=== PATIENT | male | born 1980 | race Caucasian/White ===

== ENCOUNTER → 2021-01-06 08:55 | Outpatient (BNVA) | payer BC, SELFPAY | PROVIDERS: PCP Internal Medicine; Visit Provider Urology ==

== ENCOUNTER → 2021-04-07 09:05 | Outpatient (BNVA) | payer BC, SELFPAY | PROVIDERS: PCP Internal Medicine; Visit Provider Urology ==

== ENCOUNTER → 2021-07-08 08:59 | Outpatient (BNVA) | payer BC, SELFPAY | PROVIDERS: PCP Internal Medicine; Visit Provider Urology ==

== ENCOUNTER → 2021-10-07 08:45 | Outpatient (BNVA) | payer BC, SELFPAY | PROVIDERS: PCP Internal Medicine; Visit Provider Urology | DX: Z13.89 Encounter for screening for other disorder (principal) ==

== ENCOUNTER 2022-02-23 16:31 | Outpatient (REF) | payer BC, SELFPAY ==
--- NOTE | ~2022-02-23 | US_ITS ---
EXAMINATION: US RETROPERITONEAL LIMITED (RENAL ONLY) CLINICAL INFORMATION: Calculus of kidney. COMPARISON: Renal ultrasound 05/29/2019 and 11/23/2016. X-ray KUB 08/28/2012. CT abdomen and pelvis 08/12/2012. TECHNIQUE: Real-time imaging of the kidneys. FINDINGS: RIGHT KIDNEY: 10.8 x 5.3 x 5.6 cm (SAG x AP x TRV). The kidney is normal in size, contour, and echogenicity. Renal cortical thickness is normal. There is a 5 mm nonobstructing lower pole calculus and a 4 mm nonobstructing mid pole calculus. There is no hydronephrosis of the right kidney. LEFT KIDNEY: 12.1 x 5.0 x 5.2 cm (SAG x AP x TRV). The kidney is normal in size, contour, and echogenicity. Renal cortical thickness is normal. There are a few nonobstructing calculi of the left kidney, the largest is located within the upper pole and measures 9 mm. There is no hydronephrosis. US/US renal BI IMPRESSION: Bilateral nonobstructing renal calculi. No hydronephrosis.
== END 2022-02-23 16:32 | disposition home or self-care (01) ==
LOC: HO.US 16:31
PROVIDERS: Visit Provider Urology
DX: N20.0 Calculus of kidney (principal)
CPT/HCPCS: 76775

== ENCOUNTER 2022-09-11 15:34 | Outpatient (REF) | payer BC, SELFPAY ==
--- NOTE | ~2022-09-11 | US_ITS ---
EXAMINATION: US RETROPERITONEAL LIMITED (RENAL ONLY) CLINICAL INFORMATION: Calculus of kidney. COMPARISON: Renal ultrasound 02/23/2022 and 05/29/2019. X-ray KUB 08/28/2012. CT abdomen and pelvis 08/12/2012. TECHNIQUE: Real-time imaging of the kidneys. FINDINGS: RIGHT KIDNEY: 10.8 x 5.2 x 6.0 cm (SAG x AP x TRV). The kidney is normal in size, contour, and echogenicity. Renal cortical thickness is normal. No focal parenchymal lesions or hydronephrosis. Lower pole echogenic focus measuring 7 mm is present consistent with a nonobstructing calculus. LEFT KIDNEY: 12.4 x 5.2 x 5.2 cm (SAG x AP x TRV). The kidney is normal in size, contour, and echogenicity. Renal cortical thickness is normal. Multiple punctate foci without twinkle artifact are seen, the largest measuring 3 mm in size consistent with nonobstructing stones. No focal parenchymal lesions. No hydronephrosis. US/US renal BI IMPRESSION: Bilateral nonobstructing renal calculi.
== END 2022-09-11 15:35 | disposition home or self-care (01) ==
LOC: HO.US 15:34
PROVIDERS: PCP Internal Medicine; Visit Provider Urology
DX: N20.0 Calculus of kidney (principal)
CPT/HCPCS: 76775

== ENCOUNTER → 2022-10-06 15:07 | Outpatient (BNVA) | payer BC, SELFPAY | PROVIDERS: PCP Internal Medicine; Visit Provider Urology | DX: Z13.89 Encounter for screening for other disorder (principal) ==

== ENCOUNTER 2023-03-28 07:37 | Outpatient (REF) | payer BC, SELFPAY ==
--- NOTE | ~2023-03-28 | US_ITS ---
EXAMINATION: US RETROPERITONEAL LIMITED (RENAL ONLY) CLINICAL INFORMATION: Calculus of kidney. COMPARISON: Renal ultrasound 09/11/2022 and 02/23/2022. X-ray abdomen KUB 08/28/2012. CT abdomen and pelvis 08/12/2012. TECHNIQUE: Real-time imaging of the kidneys. FINDINGS: RIGHT KIDNEY: 10.7 x 5.6 x 6.1 cm (SAG x AP x TRV). The kidney is normal in size, contour, and echogenicity. Renal cortical thickness is normal. No focal parenchymal lesions or hydronephrosis. At the upper pole, a 5 mm nonobstructing calculus is seen, with twinkle artifact. LEFT KIDNEY: 12.0 x 5.1 x 6.0 cm (SAG x AP x TRV). The kidney is normal in size, contour, and echogenicity. Renal cortical thickness is normal. No calculi or focal parenchymal lesions. No hydronephrosis. US/US renal BI IMPRESSION: A 5 mm nonobstructing right calculus is seen. No left renal calculus is seen. No hydronephrosis is noted bilaterally.
== END 2023-03-28 07:38 | disposition home or self-care (01) ==
LOC: HO.US 07:37
PROVIDERS: PCP Internal Medicine; Visit Provider Urology
DX: N20.0 Calculus of kidney (principal)
CPT/HCPCS: 76775

== ENCOUNTER 2023-04-04 13:44 | Outpatient (AMB) | payer BC, SELFPAY ==
--- NOTE | 2023-04-04 13:58 | MHC.OFFVIS ---
Intake Intake Visit Reasons: 6m/US(SET) Intake Note: Patient is Present for Follow Up Urology Medication: Vitamin B6, Sildenafil, Tadalafil, Tamsulosin Antibiotic Allergies: Penicillins Blood Thinners: None Allergies fentanyl [FENTANYL] Allergy (Unknown, Verified 10/06/22 15:09) RASH penicillin V Allergy (Unknown, Verified 10/06/22 15:09) Unknown Penicillins [PCN] Allergy (Unknown, Verified 10/06/22 15:09) UNKNOWN HPI HPI Comments History of Present Illness Details Gianni Curtis is a very pleasant male. He is a patient of Dr Quinones. He is seen for the following urologic conditions. - hypogonadism - nephrolithiasis - erectile dysfunction - lower urinary tract symptoms Repeat ultrasound shows reduction in stone burden Continue vitamin B6 Encourage fluid intake Using tamsulosin p.r.n. for bladder emptying Has new relationship and at this point does not require tadalafil for erectile performance Lower urinary tract symptoms Trapped prostate Good effect from alpha-gabriel Helps minimize prostatitis Previously have discussed transurethral incision of the prostate Hypogonadism:? - not currently in therapy Responded to restart in 2019 ? He presents today for?further evaluation and followup of his hypogonadism.? Initial symptoms include? erectile dysfunction ?Yes ? decreased libido ?No ? change in mood/depression ?No ? in muscle size/strength ?Yes ? increased fatigue/malaise ?Yes ? increased abdominal fat ?No ? tender breasts/gynecomastia ?No ? hair loss ?No ? osteopenia ?No ? The onset of symptoms has been?gradual.? Associate conditions include? chronic pain with opioid use ?No ? obstructive sleep apnea ?No ? CAD ?No ? diabetes ?No ? dyslipidemia ?No ? hypertension ?No ? obesity ?No ? stress - financial, family, employment ?No ? heavy alcohol or illicit drug use ?No ? He has been taking?antidepressants.? Laboratory results?baseline, October 2015 testosterone, low, albumin, normal, SHBG, normal, calculated bioavailable testosterone < 150, estradiol, , low ?- October 2016 T 278 ?- 05/27 T 340 ?06/29 301 ?09/27 T 134 PSA 0.2.? Current therapy includes?none.? 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 Therapeutic plan?periodic review.? Nephrolithiasis/Urolithiasis:? No stones on recent x-ray. ? They are here for?further evaluation of urethrolitiasis.? They present for evaluation of? back pain ?none ? flank pain ?none ? abdominal pain ?none ? Urolithiasis was diagnosed?a number of years ago.? The patient previously had kidney stones whose composition w?calcium stones.? Laboratory investigations include?no recent labs.? 24 Hour urine evaluation?none on file.? Prior treatment(s) include?right, ESWL x4.? Prior imaging includes?October 2016 - , a renal ultrasound, showing no evidence of stones ?06/29 , a renal ultrasound right 4mm ?12/27 , a renal ultrasound, showing no evidence of stones ?05/29 , a renal ultrasound bilateral 3mm stones ?11/28 KUB NAD - 12/29 renal ultrasound bilateral 3 mm stones left renal cysts largest is 1.3 cm - 03/02 renal ultrasound bilateral stones, 4-5 mm right, collection on left - 08/31 renal ultrasound small bilateral punctate stones, somewhat reduced from last imaging ? UA today shows?5.5-6.0, , high specific gravity suggestive of relative dehydration. ? Current therapeutic plan will be?continue surveillance with B6 PFSH Medical History GERD (gastroesophageal reflux disease) Anxiety HTN (hypertension) Attention deficit disorder History of kidney stones Recurrent nephrolithiasis Erectile dysfunction due to diseases classified elsewhere Hypogonadism in male Surgical History History of surgery Social History Patient Tobacco Use Status: Former Tobacco user Review of Systems Const Denies chills and Denies fever(s) Card Reports no additional complaints and Denies syncope Resp Denies cough GI Denies abdominal pain and Denies heartburn Reports as per HPI and Denies change in libido Neuro Denies syncope Psych Denies change in libido Endo Denies change in libido Physical Exam Const General: cooperative, healthy appearing, comfortable and no acute distress Orientation/consciousness: patient oriented x3 HEENT Face and sinus: Yes normal facial exam Mouth: moist mucous membranes Neck Neck: Yes normal visual inspection, Yes full ROM and Yes trachea midline Chest Chest palpation & inspection: normal inspection of the chest Resp Effort & Inspection: normal respiratory effort, able to speak in complete sentences and no respiratory distress GI Inspection: Yes normal to inspection Back/Spine/Pelvis Cervical Spine: normal cervical lordosis Thoracic/Lumbar Spine: thoracic and lumbar spine normal to inspection Skin General skin exam: no rashes or lesions noted Neuro General: patient oriented x3, gait normal, tone normal and moves all extremities Extrem General: Yes normal to inspection and Yes capillary refill normal Assessment & Plan Assessment & Plan (1) Nephrolithiasis: Code(s): N20.0 - Calculus of kidney (2) Bladder outlet obstruction: Code(s): N32.0 - Bladder-neck obstruction Plan Twelve month follow-up Orders: Orders US renal BI 364 Days N20.0 - Calculus of kidney Patient Instructions: Imaging studies, laboratory and physical exam results were discussed and reviewed in detail. No major barriers to patient understanding were identified. An opportunity to ask questions regarding the treatment plan was provided. All questions were answered. The patient expressed understanding and agreement with the above treatment plan. The patient is aware they should contact our office by phone for worsening of their current condition or the appearance of new urologic symptoms. Compliance is encouraged with any medications and followup testing that is ordered. It is a privilege to participate in the urologic care of your patient. If you have any questions or concerns regarding treatment for the above conditions, or other urologic issues, please do not hesitate to contact me. The office telephone contact is [phone]. This note is constructed using voice recognition software. While every effort has been made to ensure accuracy molder machine tender errors may have been included. Yours sincerely, Dr Tomás Lanier MD, [facility] - Urology Providers of Expert, Compassionate Care for the Genitourinary System Coding Level of Care Code Est Pt Level 3 (06256) Diagnoses Nephrolithiasis N20.0 Bladder outlet obstruction N32.0
== END 2023-04-04 14:52 | disposition home or self-care (01) ==
PROVIDERS: Visit Provider Urology
DX: N20.0 Calculus of kidney (principal); N32.0 Bladder-neck obstruction
CPT/HCPCS: 99213

== ENCOUNTER → 2023-04-04 13:44 | Outpatient (BNVA) | payer BC, SELFPAY | PROVIDERS: Visit Provider Urology ==

== ENCOUNTER 2024-03-18 07:50 | Outpatient (REF) | payer BC, SELFPAY ==
--- NOTE | ~2024-03-18 | US_ITS ---
EXAMINATION: US RETROPERITONEAL LIMITED (RENAL ONLY) CLINICAL INFORMATION: Calculus of kidney. COMPARISON: Renal ultrasound 03/28/2023 and 09/11/2022. TECHNIQUE: Real-time imaging of the kidneys. FINDINGS: RIGHT KIDNEY: 11.4 x 5.0 x 6.2 cm (SAG x AP x TRV). The kidney is normal in size, contour, and echogenicity. Renal cortical thickness is normal. There is a 4 mm mid renal echogenic focus seen with twinkle artifact consistent with a nonobstructing calculus. No hydronephrosis. Two small benign Bosniak class I renal cysts are noted, the largest measuring 1.0 cm, which require no additional imaging or follow-up. No solid renal masses are seen. LEFT KIDNEY: 11.4 x 6.4 x 6.4 cm (SAG x AP x TRV). The kidney is normal in size, contour, and echogenicity. Renal cortical thickness is normal. No calculi or focal parenchymal lesions. No hydronephrosis. ADDITIONAL FINDINGS: The liver is echogenic consistent with hepatic steatosis. US/US renal BI IMPRESSION: 1. Nonobstructing 4 mm right renal calculus. 2. Incidentally noted hepatic steatosis. Electronically signed by: Jamal Etienne MD 05/10/2024 10:47 AM JENNA
== END 2024-03-18 07:51 | disposition home or self-care (01) ==
LOC: HO.US 07:50
PROVIDERS: PCP Internal Medicine; Visit Provider Urology
DX: N20.0 Calculus of kidney (principal)
CPT/HCPCS: 76775

== ENCOUNTER 2024-03-31 13:11 | Outpatient (RCR) | payer BC, SELFPAY ==
--- NOTE | 2024-04-23 11:51 | MHC.SP.ADU ---
Referring provider: Cameron Andrews MD Reason for Referral: Cognitive-Communication Testing for CAP work-up. Type of Treatment: 05869 Evaluation Speech Sound Production WITH Language Date of Plan of Treatment: 03/31/24 Onset of Symptoms/Illness: 11/23/23 Date Treatment Started: 03/31/24 Medical Diagnosis: Hearing and processing concerns Primary Speech Language Diagnosis: Other History Gianni is a 43 year-old male with concerns of auditory processing disorder. PMH is significant for ASD, ADHD, Anxiety and Sleep Apnea. He uses CPAP at night. He reports he was diagnosed with ASD as an adult. 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 He has two children, aged 14 and 17. His 17 year-old has been diagnosed with CAPD. He endorses trouble at school requiring supports. Recent Audiology Evaluation at his ENT showed mild high-frequency hearing loss. He is left-handed. Medical History: Heart Attack Other: Autism Spectrum Disorder Anxiety Depression ADHD Panic attacks Medication List: Recent Hospitalizations: No Respiratory Needs: Room Air Patient Orientation: Alert & Oriented x 4 Social History: Employment Status: Nurse Coordinator Employed Highest level of education obtained: Completed Master's Current Living Situation: Independent. Assistive Devices in use: Comment: Past Speech Language Therapy: Had Speech Therapy as a child. Swallowing History: Dysphagia Specific: Within Functional Limits Comments: Pre-eval Risk for Aspiration: None Pre-evaluation Dietary Consistencies: Regular Pre-eval Liquid Intake: Thin Pre-eval Medication Intake: Whole with Liquid Reported Speech, Language, Cognition difficulties: Understanding Attention Comments: Quality of Life: He reports considerable frustration in seeking this diagnosis. Patient Stated Goal of Speech-Language Therapy: To assess Cognitive-Communication Skills as part of a CAPD work-up. Assessment Speech Production: Within Functional Limits Clinical Impression: Intact Observations: Testing not indicated. Informal Voice Assessment: Voice Loudness: Normal Voice Nasal Resonance: Normal Voice Oral Resonance: Normal Voice Phonatory-based Quality: Normal Voice Pitch: Normal Voice Other Observations: Clinical Impression: Intact Clinicial Observations: Testing not indicated. Tests of Speech & Lang Adults: Clinical Impression: Intact Observations: Testing not indicated. Tests of Cognition: RBANS Clinical Impression: Intact Observations: Gianni participated in select subtests of the Repeatable Battery for the Assessment of Neuropsychological Status - Updated. Subtests were sufficient to yield a Total Scale Score. The RBANS is considered a screening battery for cognitive function and is repeatable for the purpose of evaluating any changes in function. It is intended for use with adolescents and adults, ages 12 to 89 years. Composite domains assessed in this test are: Immediate Memory, Visuospatial/Constructional, Language, Attention, and Delayed Memory. His scores are tabled below: I.) Immediate Memory Index: 90 Ia.) List Learning: -- Scaled Score: 12 Ib.) Story Memory: -- Scaled Score: 5 The Immediate Memory Index measures, ?initial encoding and learning of complex and simple verbal information. Low scores on this index indicated difficulties with verbal learning.? The score is derived from the participant?s performance on the subtests List Learning and Story Memory. List Learning measures, ?rote verbal memory function.? Participants are asked to repeat back a list of ten words presented to them verbally across four trials. Poor performance on this subtest indicates that, ?the examinee may have difficulty learning new verbal information and that repetition may not be beneficial?, if they do not improve across trials. The Story Memory subtest measures, ?memory for conceptually related verbal information.? Here, a short story is read to them across two trials and they are asked to recall details from the story. ?The test is a measure of verbal memory functioning for information that is related?. As with List Learning, participants that do not demonstrate a positive learning curve across trials could indicate, ?difficulty with learning new verbal learning, and that repetition may not help, or that the examinee may have difficulty retrieving new information from memory. II.) Visuospatial/Constructional Index: 121 IIa.) Figure Copy: -- Scaled Score: 20 IIb.) Line Orientation: -- Percentile Group: 51-75 The Visuospatial/Constructional Index is derived from the Figure Copy and Line Orientation subtests. It measures, ?basic visuospatial perception and the ability to copy a design from a model?. Low performance with this index can indicate, ?difficulties with processing and using visuospatial information?, or, ?visual impairments or attention disorders such as tom neglect?. The Figure Copy subtest requires the examinee to copy a complex geometrical design from a model that is present throughout the task. ?This requires many cognitive skills including visuospatial reasoning, attention to visual details, motor programming, and to a lesser degree, organization and fine-motor ability?. Points are given for specific details, as well as specific placement in the context of the entire image. The Line Orientation subtest measures, ?the examinee?s ability to correctly identify spatial orientation in two-dimensions?. Poor performance indicates significant visuospatial impairments in acuity and attention. III.) Language Index: 85 IIIa.) Picture Naming: -- Percentile Group: 51-75 IIIb.) Semantic Fluency: -- Scaled Score: 5 The Language Index is, ?a measure of expressive language functioning?. Low scores with this subtest ?would indicate difficulties with language functioning? and, ?while the overall score would still indicate language difficulties, the deficits may be more related to fluency versus naming skills.? The Picture Naming subtest is provided by showing the participant a series of 10 simple line drawing and asking them to name them. The Semantic Fluency subtest is a measure of, ?the examinee?s ability to retrieve and express words using a semantic prompt?. In brief, the examinee is given a category and asked to name as many exemplars as they can in 60 seconds. Low scores, ?indicate significantly impaired ability to retrieve and express verbal information from long-term memory stores?. IV.) Attention Index: 100 Tavares.) Digit Span: -- Scaled Score: 11 IVb.) Coding: -- Scaled Score: 10 The Attention Index is a derived from the Digit Span and Coding subtests. It is a measure of, ?simple auditory registration, visual scanning and processing speed. Low scores on this index indicate, ?difficulties with basic attention and processing speed?. Difficulties can vary between the subtests suggesting acute differences between auditory and visual processing and attention. Digit Span is a measure of, ?auditory registration and brief focused attention. Low scores can also indicate difficulties with auditory attention and registration?. In it, the examinee is read a series of single digit numbers and asked to repeat them back in the same order. ?Impairments in auditory acuity can also influence performance on this test?. Coding is a measure of, ?brief, focused, visual attention, visual scanning and processing speed?. In it, the examinee is given a fischer at the top of the page where each symbol is associated with a different number. The examinee is then asked to fill out as many numbers to corresponding symbols as they can in 90 seconds. In incorporates the notion of diligence and sustained attention as well. Difficulties can indicate problems with, ?processing speed and focused visual attention?. V.) Delayed Memory Index: 98 Va.) List Recall: -- Percentile Group: 3-9 Vb.) List Recognition: -- Percentile Group: 51-75 Vc.) Story Recall: -- Scaled Score: 4 Vd.) Figure Recall: -- Scaled Score: 14 The Delayed Memory Index is derived by combining the subtest scores for List Recall, Story Recall, and Figure Recall, and cross-referencing them with the List Recognition subtest. Auditory and Visual subtest are combined together. Difference between subtests can be highlighted to provide more specific information about areas of deficit and strength. ?The deficits, may be more related to verbal more than visual memory, or free recall as opposed to recognition memory or general variability in memory functioning.? .) Total Scale Score: 98 (%ile=45) Augmentative and Alternative Communication: Did Not Test Impressions and Recommendations SUMMARY: Gianni demonstrated ability levels largely within functional limits. One area of relative weakness would be in the Language domain. Scores suffered here due to a lower than expected performance on Semantic Fluency (n=14, SS=5). His scores in Immediate (90) and Delayed Memory (98) should be interpretted with caution. On the List Learning subtest (SS=12) he went from recalling 4 items on the first trial to 8 by the fourth trial. On Delayed Memory conditions, his scores for List Recall (%ile=3-9) and Story Recall (SS=4) were both deminished. Both of these subtests require the participant to listen to auditory stimuli either for a discrete list, or a short narrative. Difficulty on these tasks could be impacted by auditory processing. His Figure Recall, by contrast yeilded a high score of SS=14. We reviewed these scores together and he was pleasantly surprised that they weren?t lower that he expected. Mr. Curtis does not wish to pursue treatment at this time. He is eager, however, to continue on to CAPD testing with Audiology. Impact on Daily Function/Activity Limitations: Daily Activities: Mild Interpersonal Interactions: Mild Education: None Employment: Mild Community: Mild Prognosis for Improvement: Good Comment: Recommendation for Speech Therapy: Further Testing Needed Frequency/Duration: NA Date Range for Service Requested: NA Time to Reassess: PRN Recommended Referrals to be Discussed with Primary Care Provider: Audiological Evaluation for CAPD, if indicated. Patient Education: Completed: Yes Patient/Caregiver Education: Described Results of Evaluation Patient expressed understanding of evaluation Patient agrees with goals and treatment plan Dragline Oiler Clinican/Clinical Fellow: No Supervisory Statement: N/A Speech Language Pathologist: Hai Wright M.A., [facility]-AUTHORIZATION SPECIALIST
== END 2024-04-23 12:48 | disposition home or self-care (01) ==
LOC: HO.SH 13:11
PROVIDERS: Visit Provider Otolaryngology
DX: F80.9 Developmental disorder of speech and language, unspecified (principal)
CPT/HCPCS: 92523

== ENCOUNTER 2024-04-01 08:19 | Outpatient (AMB) | payer BC, SELFPAY ==
--- NOTE | 2024-04-01 08:28 | MHC.OFFVIS ---
Intake Visit Reasons: 1Y Ultrasound(set) Intake Note: Patient is Present for 1y ultrsound Follow Up Urology Medication: Vitamin B6, Sildenafil, Tadalafil, Tamsulosin Antibiotic Allergies: Penicillins Blood Thinners: None Vehicle Mechanic Required: No Allergies fentanyl [FENTANYL] Allergy (Unknown, Verified 04/01/24 08:29) RASH penicillin V Allergy (Unknown, Verified 04/01/24 08:29) Unknown Penicillins [PCN] Allergy (Unknown, Verified 04/01/24 08:29) UNKNOWN Medication List - Last Reconciled 04/01/24 by Tomás Lanier MD atomoxetine 60 mg PO DAILY chlorthalidone 25 mg PO DAILY fluoxetine 40 mg PO DAILY lisinopril 20 mg PO DAILY prednisone 20 mg PO DAILY 5 days prednisone mg PO pyridoxine (vitamin B6) 100 mg PO DAILY 90 days sildenafil 100 mg PO ONCE PRN 30 days tadalafil 5 mg PO DAILY PRN 90 days tamsulosin 0.4 mg PO DAILY 90 days triamcinolone acetonide 0.1% 1 appl topical BID HPI Comments Details: Gianni Curtis is a very pleasant male. He is a patient of Dr Quinones. He is seen for the following urologic conditions. - hypogonadism - nephrolithiasis - erectile dysfunction - lower urinary tract symptoms Repeat ultrasound shows reduction in stone burden Continue vitamin B6 Encourage fluid intake Using tamsulosin p.r.n. for bladder emptying - did discuss transurethral incision of the prostate which he is considering Has new relationship and at this point does not require tadalafil for erectile performance Ongoing issues with sleep apnea. Did discuss impact with testosterone levels. Six-month follow-up Lower urinary tract symptoms Trapped prostate Good effect from alpha-gabriel Helps minimize prostatitis Previously have discussed transurethral incision of the prostate Hypogonadism:? - not currently in therapy Responded to restart in 2019 ? He presents today for?further evaluation and followup of his hypogonadism.? Initial symptoms include? erectile dysfunction ?Yes ? decreased libido ?No ? change in mood/depression ?No ? in muscle size/strength ?Yes ? increased fatigue/malaise ?Yes ? increased abdominal fat ?No ? tender breasts/gynecomastia ?No ? hair loss ?No ? osteopenia ?No ? The onset of symptoms has been?gradual.? Associate conditions include? chronic pain with opioid use ?No ? obstructive sleep apnea ?No ? CAD ?No ? diabetes ?No ? dyslipidemia ?No ? hypertension ?No ? obesity ?No ? stress - financial, family, employment ?No ? heavy alcohol or illicit drug use ?No ? He has been taking?antidepressants.? Laboratory results?baseline, October 2015 testosterone, low, albumin, normal, SHBG, normal, calculated bioavailable testosterone < 150, estradiol, , low ?- October 2016 T 278 ?- 05/27 T 340 ?06/29 301 ?09/27 T 134 PSA 0.2.? Current therapy includes?none.? 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 Therapeutic plan?periodic review.? Nephrolithiasis/Urolithiasis:? No stones on recent x-ray. ? They are here for?further evaluation of urethrolitiasis.? They present for evaluation of? back pain ?none ? flank pain ?none ? abdominal pain ?none ? Urolithiasis was diagnosed?a number of years ago.? The patient previously had kidney stones whose composition w?calcium stones.? Laboratory investigations include?no recent labs.? 24 Hour urine evaluation?none on file.? Prior treatment(s) include?right, ESWL x4.? Prior imaging includes?October 2016 - , a renal ultrasound, showing no evidence of stones ?06/29 , a renal ultrasound right 4mm ?12/27 , a renal ultrasound, showing no evidence of stones ?05/29 , a renal ultrasound bilateral 3mm stones ?11/28 KUB NAD - 12/29 renal ultrasound bilateral 3 mm stones left renal cysts largest is 1.3 cm - 03/02 renal ultrasound bilateral stones, 4-5 mm right, collection on left - 08/31 renal ultrasound small bilateral punctate stones, somewhat reduced from last imaging - 03/04 renal ultrasound right 3mm small stone ? UA today shows?5.5-6.0, , high specific gravity suggestive of relative dehydration. ? Current therapeutic plan will be?continue surveillance with [address] Medical History GERD (gastroesophageal reflux disease) Anxiety HTN (hypertension) Attention deficit disorder History of kidney stones Recurrent nephrolithiasis Erectile dysfunction due to diseases classified elsewhere Hypogonadism in male Surgical History History of surgery Social History Patient Tobacco Use Status: Former Tobacco user Review of Systems Const Denies chills and Denies fever(s) Card Reports no additional complaints and Denies syncope Resp Denies cough GI Denies abdominal pain and Denies heartburn Reports as per HPI and Denies change in libido Neuro Denies syncope Psych Denies change in libido Endo Denies change in libido Physical Exam Const General: cooperative, healthy appearing, comfortable and no acute distress Orientation/consciousness: patient oriented x3 HEENT Face and sinus: Yes normal facial exam Mouth: moist mucous membranes Neck Neck: Yes normal visual inspection, Yes full ROM and Yes trachea midline Chest Chest palpation & inspection: normal inspection of the chest Resp Effort & Inspection: normal respiratory effort, able to speak in complete sentences and no respiratory distress GI Inspection: Yes normal to inspection Back/Spine/Pelvis Cervical Spine: normal cervical lordosis Thoracic/Lumbar Spine: thoracic and lumbar spine normal to inspection Skin General skin exam: no rashes or lesions noted Neuro General: patient oriented x3, gait normal, tone normal and moves all extremities Extrem General: Yes normal to inspection and Yes capillary refill normal Results AMB Urinalysis, Automated UA Leukoctes 0 Susy/uL Last Edit by JANEY Rice on 04/01/24 08:47 UA Nitrite Negative Last Edit by JANEY Rice on 04/01/24 08:47 UA Urobilinogen 0.2 mg/dL Last Edit by JANEY Rice on 04/01/24 08:47 UA Protein 15 mg/dL Last Edit by JANEY Rice on 04/01/24 08:47 UA pH 6.0 Last Edit by JANEY Rice on 04/01/24 08:47 UA Blood 0 Rubens/uL Last Edit by JANEY Rice on 04/01/24 08:47 UA Specific [place] 1.020 Last Edit by JANEY Rice on 04/01/24 08:47 UA Ketone Negative Last Edit by JANEY Rice on 04/01/24 08:47 UA Bilirubin 0 mg/dL Last Edit by JANEY Rice on 04/01/24 08:47 UA Glucose 0 mg/dL Last Edit by JANEY Rice on 04/01/24 08:47 Assessment & Plan Assessment & Plan (1) Bladder outlet obstruction: Code(s): N32.0 - Bladder-neck obstruction Category: Medical (2) Prostatitis: Code(s): N41.9 - Inflammatory disease of prostate, unspecified Category: Medical (3) Nephrolithiasis: Code(s): N20.0 - Calculus of kidney Category: Medical Plan Six-month follow-up Orders: Orders Testosterone, Total 6 Months E29.1 - Testicular hypofunction AMB Urinalysis Automated Today Z13.9 - Encounter for screening, unspecified Medications: Refilled tamsulosin 0.4 mg PO DAILY 90 days 90 caps 1RF N32.0 - Bladder-neck obstruction tadalafil 5 mg PO DAILY 90 days PRN 90 tabs 1RF sexual activity N52.9 - Male erectile dysfunction, unspecified Patient Instructions: Imaging studies, laboratory and physical exam results were discussed and reviewed in detail. No major barriers to patient understanding were identified. An opportunity to ask questions regarding the treatment plan was provided. All questions were answered. The patient expressed understanding and agreement with the above treatment plan. The patient is aware they should contact our office by phone for worsening of their current condition or the appearance of new urologic symptoms. Compliance is encouraged with any medications and followup testing that is ordered. It is a privilege to participate in the urologic care of your patient. If you have any questions or concerns regarding treatment for the above conditions, or other urologic issues, please do not hesitate to contact me. The office telephone contact is [phone]. This note is constructed using voice recognition software. While every effort has been made to ensure accuracy brine well operator errors may have been included. Yours sincerely, Dr Tomás Lanier MD, [facility] - Urology Providers of Expert, Compassionate Care for the Genitourinary System Coding Level of Care Code Est Pt Level 3 (17601) Diagnoses Bladder outlet obstruction N32.0 Prostatitis N41.9 Nephrolithiasis N20.0
== END 2024-04-01 09:22 | disposition home or self-care (01) ==
PROVIDERS: PCP Internal Medicine; Visit Provider Urology
DX: N32.0 Bladder-neck obstruction (principal); N41.9 Inflammatory disease of prostate, unspecified; N20.0 Calculus of kidney; Z13.9 Encounter for screening, unspecified
CPT/HCPCS: 99213

== ENCOUNTER → 2024-04-01 08:19 | Outpatient (BNVA) | payer BC, SELFPAY | PROVIDERS: PCP Internal Medicine; Visit Provider Urology | DX: N32.0 Bladder-neck obstruction (principal); N41.9 Inflammatory disease of prostate, unspecified; N20.0 Calculus of kidney; N52.9 Male erectile dysfunction, unspecified | CPT/HCPCS: 81003 ==

== ENCOUNTER 2024-05-14 12:48 | Outpatient (REF) | payer BC, SELFPAY ==
--- OUTSIDE RECORDS SUMMARY | 2024-05-20 19:16 | XMS_ITS | Data Portability ---
Author Organization [place] - [facility], Allergy Address [address] [address] Assessment Encounter Date Assessment Date Assessment LastModified by Organization Details LastModified Time 11/23/2023 11/23/2023 Patient concerned about difficulty hearing in background situations, possible auditory processing disorder and being evaluated for autism spectrum disorder. Suggest auditory process testing at [facility] or [facility] Arrange for MRI scan given the slight asymmetry in hearing left compared to right. May be due to noise exposure or toxic exposures [email or web address] Not available 11/23/2023 11:02:02 Plan of Treatment Reminders Order Date Submit Date Provider Last Modified By Organization Details Last Modified Time Details Appointments None recorded. Lab None recorded. Referral None recorded. Procedures None recorded. Surgeries None recorded. Imaging MRI, brain + internal auditory canal, w/wo contrast 2023 024 [facility] ([facility] [address] [place], [address], 13:19:57 Medication Orders None recorded. Patient TargetsNo targets recorded. Patient InstructionsNo instructions recorded. Reason for Referral None Reported. Results Created Date Observation Date Name Description Value Unit Range Abnormal Flag Note LastModifiedBy Organization Detail LastModifiedTime 11/26/19 24 audio gram No observ ation record ed. BAR[facility] Not Available 2023 08:52:15 11/29/19 24 11/28/2023 MRI, brain + brain stem, w/wo contr ast [facility] Access ion Number : [id number]to t Name: Gianni Curtis l Record Number : [id number] Date of : 1980 Date of Exam: 2023 Referr ing Physic gloria: Cameron Squires [facility] [address] [facility] [place] [address] Exam: MR Brain (C-/C+ ) CPT 14044 Room Descri ption: [place] Siem Espr 1.5 MR Brain (C-/C+ ) CPT 45995 INDICA TION / CLINIC AL QUESTI ON: Reason For Exam: H90.3 - Sensor ineura l hearin g loss, bilate ral, , [facility] (MRI, BRAIN + DERRICK BUILDER AL AUDITO RY CANAL, W/WO CONTRA ST) Reason For Exam: H90.3 - Sensor ineura l hearin g loss, bilate ral, , [facility] (MRI, BRAIN + DERRICK BUILDER AL AUDITO RY CANAL, W/WO CONTRA ST) Depart ment Protoc ol TECHNI QUE: MRI of the brain with attent ion to the internet network specialist al audito ry canals was perfor med with and withou t contra st utiliz ing sagitt al T1, axial T2, axial CISS, axial and campa l T1, and post-c ontras t axial and campa l T1-brock ghted sequen neot. 19 mL Dotare m intrav enous contra st was admini stered . COMPAR BRYCE: None. FINDIN GS: IAC: There is no mass or abnorm al enhanc ement in the internet network specialist al audito ry canals or cerebe llopon anabelle angles . Course and calibe r of the 7th and 8th crania l nerves is normal bilate rally. Fluid signal is preser roman in the inner ear struct ures bilate rally. Brains tem demons trates normal signal . BRAIN and EXTRA- AXIAL SPACES : No signif icant abnorm ality of the visual ized portio ns of the brain and extra- axial spaces . EXTRAC RANIAL SOFT TISSUE S: Visual ized portio ns of the extrac ranial soft tissue s are unrema rkable . Mucus retent ion cysts in the left maxill gauri sinus and trace scatte red parana humberto sinus mucosa l thicke sharifa. BONES: Visual ized marrow signal is preser roman. IMPRES AXEL: No retroc ochlea r abnorm ality to explai n the patien t?s sympto ms. Electr onical ly Signed By: Alison hurley MD [facility] ([facility]) [address], [place], [address], 11/30/2023 10:05:58 Result Notes None recorded. Problems Name Problem SNOMED Code Status Onset Date Resolution Date Notes Provider Name and Address Organization Details Recorded Time Abnormal auditory perception 67445073 Active 2023 Noris perez [place] - [facility] 10:23:38 Sensorineural hearing loss of bilateral ears 121533254 Active 2023 Noris perez [place] - [facility] 10:24:03 Attention deficit hyperactivity disorder 869877674 Active 2023 CAMERON CARSON MD [address] [place] [address], [place], [phone], [facility] - [facility] 10:59:41 Obstructive sleep apnea syndrome 98075841 Active 2023 CAMERON CARSON MD [address] [place] [address], [place], [phone], [facility] - [facility] 10:59:45 Problem Notes None recorded. Procedures Surgical History Date Name Laterality Status Provider Name and Address Organization Details Recorded Time 11/23/19 24 Comp Audio with Tymps (27796 & 56247) completed Noris Bowens [place] - [facility] 11/23/2023 10:23:25 lithotripsy completed Anyi Rodriguez [place] - [facility] 11/23/2023 10:35:53 tonsillectomy completed Anyi Rodriguez MA [facility] 11/23/2023 10:36:01 procedure on wrist completed Anyi Rodriguez [facility] 11/23/2023 10:36:17 Imaging Results Imaging Date Name Status LastModified by Organiz ation Details LastModified Time 11/26/2023 audiogram completed [facility] Information no t available 11/26/2023 08:52:15 11/28/2023 MRI, brain + brain stem, w/wo contrast completed [facility] ([facility]) [address] [place], [address], 11/30/2023 10:05:58 Procedure Notes None recorded. Medical Equipment None Reported. Allergies No known drug allergies Medications Name Sig Start Date Stop Date Status Note LastModified by Organization Details LastModified Time fluoxetine 40 mg capsule Take 1 capsule every day by oral route. active Not Available Not Available No t Available tamsulosin 0.4 mg capsule Take 1 capsule every day by oral route. active Not Available Not Available No t Available lisinopril 10 mg tablet Take 1 tablet every day by oral route. active Not Available Not Available No t Available atomoxetine 60 mg capsule Take 1 capsule every day by oral route. active Not Available Not Available No t Available Vitamin D3 active Not Available Not Av ailable Not Available Vitals Date Recorded Body height Body mass index (BMI) Body weight Provider Name and Address Organization Details Last Updated DateTime 11/23/2023 173.99 cm 30.6 kg/m2 47265.84 g Anyi Rodriguez [place] - [facility] 11/23/2023 10:39:45 Social History None recorded. Functional Status None recorded. Mental Status None recorded. Family History Nothing Reported. Medical History Condition Response Anxiety Y Sleep Disorder Y GERD/Reflux Y Hypertension Y Past Encounters Encounter ID Performer Location Encounter Start Date Encounter Closed Date Diagnosis/Indication Diagnosis SNOMED-CT Code Diagnosis ICD10 Code [id number] CAMERON MATAMOROS MD [facility] [address] [address] 11/23/2023 09:31:02 11/23/2023 11:06:17 Sensorineural hearing loss of bilateral ears 182133209 H90.3 Attention deficit hyperactivity disorder 808982338 F90.9 Obstructiv e sleep apnea syndrome 79762905 G47.33 Health Concerns Section Related Observation LastModified by Organization Detai ls LastModified Time None Recorded Concern Status LastModified by Organization Details LastModified Time None Recorded Advance Directives Directive None Recorded Payers Encounter Date Sequence Insurance Name Policy Number Policy Walsh Covered Member ID Walsh Member ID Guarantor Name 11/23/2023 1 [place] [employer] [place] [id number] Gianni Curtis [id number] Gianni Curtis Notes Date Note Type Note Provider Name and Address Organization Details Recorded Time 11/23/2023 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 Rare tinnitus. Daughter has auditory processing disorder CAMERON NAM MD [address] [place] [address], [phone], [facility] - [facility] 11/23/2023 11:02:23
--- OUTSIDE RECORDS SUMMARY | 2024-05-20 19:16 | XMS_ITS ---
Author Name [facility] Organization Unknown History of Medication Use Medication Directions Dispensed Refills Start Date End Date [facility] FLUoxetine (PROzac) 40 MG capsule Take 80 mg by mouth daily. 02/08/2023 active valACYclovir (VALTREX) 500 MG tablet Take 500 mg by mouth 2 (two) times a day. 02/08/2023 active lisinopril (PRINIVIL,ZeSTRIL) 20 MG tablet Take 20 mg by mouth daily. 02/08/2023 active ergocalciferol (VITAMIN D2,DRISDOL) 14538 units Cap Take 50,000 Units by mouth once a week. 02/08/2023 active amLODIPine (NORVASC) 10 MG tablet Take 10 mg by mouth daily. 02/08/2023 active tamsulosin (FLOMAX) 0.4 MG capsule Take 0.4 mg by mouth daily. 02/08/2023 active pyridoxine (VITAMIN B-6) 100 MG tablet Take 100 mg by mouth daily. 02/08/2023 active Immunizations Vaccine Date Source Lot Number Status Influenza Inactivated/Split Preservative Free IM 04/14/2022 [facility] [id number] completed Influenza, Trivalent (FLUARI X, AFLURIA, FLULAVAL, FLUZONE) Preservative Free IM 04/04/2024 [facility] [id number] completed Tdap 02/05/2023 [facility] [id number] completed Influenza, Quadrivalent (FLU CELVAX) MDCK, Preservative Free IM 04/13/2023 [facility] [id number] completed Covid-19 mRNA Bivalent Vacci ne - Pfizer 30 mcg/0.3mL 12+ 04/21/2022 [facility] [id number] completed Covid-19 MRNA Vaccine - Pfiz er 12+ (Purple Cap) 06/24/2021 [facility] [id number] completed
--- NOTE | 2024-05-21 11:19 | MHC.AU.PEA ---
Audiological Evaluation: Pre-Central Auditory Processing Date of Visit: 05/14/24 Reason for Appointment: Gianni is seen for evaluation due to concern for auditory processing disorder. Gianni reports significant frustration and communicative challenges. Gianni notes difficulty following conversation in crowds or any situation with multiple people talking. Notes difficulty understanding accents. He reports this has been a lifelong struggle. He notes significant otologic problems in childhood and having multiple sets of PE tubes placed. He was seen at [facility] of [facility] for evaluation on 11/23/23. Testing revealed mild high frequency hearing loss Ad, moderate high frequency hearing loss As. He reports having an MRI after seeing ENT with no auditory abnormalities found. Gianni denies recent otologic concerns. Reports occasional tinnitus. Reports history of severe vertigo episode for which he did physical therapy. Notes history of noise exposure from loud music and use of lawn equipment. Reports family history of hearing loss with one grandparent wearing hearing aids. Gianni reports his daughter has been diagnosed with central auditory processing disorder. Gianni was seen for a speech, language, and cognitive evaluation with Hai Wright INTERNET SALESPERSON on 03/31/24. Gianni reports recent ASD and ADHD diagnoses. Patient?s medications: tamsulosin, vitamin b-6, fluoxetine, vitamin D-3, atomoxetine, Lisinopril, EPA/DHA, naproxen Otoscopy: Right Ear: Unremarkable Left Ear: Unremarkable Tympanometry: Performed to assess integrity of the middle ear system due to history of middle ear dysfunction, including placement of PE tubes. Right Ear: Normal Middle Ear System (Type A) Left Ear: Normal Middle Ear System (Type A) Acoustic Reflexes: Ipsilateral Probe Right: Probe Left: 500 Hz: Present 500 Hz: Present 1000 Hz: Absent 1000 Hz: Present 2000 Hz: Present 2000 Hz: Present 4000 Hz: Absent 4000 Hz: Present Otoacoustic Emissions: Frequency Range: 1.5-12 kHz Right Ear Results: Present 1.5-4kHz, absent 5-12kHz Left Ear Results: Present at 1.5kHz, absent 2-12kHz Analysis: Present emissions suggest normal cochlear function. Absent emissions suggest cochlear dysfunction. Results are consistent with degree and configuration of hearing loss. Hearing Evaluation: Method: Conventional Audiometry Transducer(s) Used: Insert Earphones, Bone Conduction Stimuli Used: Pure Tones Right Ear Description of Hearing: Within normal to borderline at 4kHz sloping to mild hearing loss. Left Ear Description of Hearing: Within normal to borderline through 3kHz sloping to moderate sensorineural hearing loss. Compared to the most recent evaluation: Hearing is stable. Speech Recognition Threshold (SRT): Method Used: Recorded Stimuli Used: Spondee Word List Form A Right Ear: 5 dB HL Left Ear: 10 dB HL Word Discrimination: Method: Recorded Word Lists Used: NU-6 Right Ear: 92% correct at 55 dB HL Left Ear: 100% correct at 55 dB HL Most Comfortable Level: Method: Monitored Live Voice Stimuli: Connected Discourse Right ear: 55 dB HL Left ear: 60 dB HL Uncomfortable Listening Level: Stimuli: Pure Tones Right Ear: 90, 90, 85, 80 dB at .5, 1, 2, and 4kHz Left Ear: 90, 90, 85, 80 dB at .5, 1, 2, and 4kHz Results consistent with normal sound tolerance. QuickSIN: The QuickSIN assesses an individual's ability to understand speech in background noise. Results: 2dB SNR Loss- Normal (Central) Auditory Processing Screening Auditory Continuous Performance Test (ACPT): The ACPT provides information regarding auditory attention. This screening test evaluates an individual's ability to listen to auditory stimuli over a prolonged period of time. The score is based on the number of times the child does not respond to the target stimuli and/or responds to stimuli other than the target stimuli. A score outside normative levels indicates possible attention difficulties. Passed ACPT SCAN-3 for Adolescents & Adults (SCAN-3:A): This is a screening test to determine if a individual is at risk for an Auditory Processing Disorder. The screening evaluates three areas of auditory processing skills and is scored by an age-appropriate Pass/Fail criterion. It is comprised of three parts: Gap Detection, Auditory Figure-Ground, and Competing Words-Free Recall. Gap Detection: Passed Gap Detection Auditory Figure-Ground +0dB: Passed Auditory Figure-Ground Competing Words- Free Recall: Did not meet pass criterion. Gianni?s total score on the Competing Words- Free Recall portion of the SCAN-3 falls in the?borderline range. Interpret with caution due to presence of asymmetric peripheral hearing loss. Interpretation of Results: Gianni presents with asymmetric high frequency hearing loss. DPOAEs are consistent with puretone responses, suggesting cochlear origin of hearing loss. Gianni has already had an MRI, as advised by Dr. Schreibstein, to rule out retrocochlear pathology. He performed within normal on the QuickSIN. Gianni passed the Gap Detection and Auditory Figure-Ground subtests of the SCAN-3. He did not pass the Competing Words-Free Recall subtest, scoring in the borderline range. Recommendations: Further auditory processing evaluation is not advised. The impact of comorbidities including diagnosed ASD, ADHD, and peripheral hearing loss are not accounted for in normative data for tests in the auditory processing battery. Additional auditory processing testing would not yield meaningful results. Even mild hearing loss, and asymmetric hearing loss in particular, are known to cause communicative difficulties in non-ideal listening situations such as in the presence of background noise or multiple talkers. Gianni was counseled on these challenges. Benefits and limitations of amplification were briefly discussed. Further consideration of and trial with amplification is recommended. Audiological evaluation in one year to monitor asymmetric sensorineural hearing loss. Signature: Provider: Hair Rider, CCC-A
== END 2024-05-14 12:49 | disposition home or self-care (01) ==
LOC: HO.SH 12:48
PROVIDERS: Visit Provider Otolaryngology
DX: Z01.118 Encounter for examination of ears and hearing with other abnormal findings (principal); H90.A22 Sensorineural hearing loss, unilateral, left ear, with restricted hearing on the contralateral side
CPT/HCPCS: 92550; 92557; 92588; 92700

== ENCOUNTER 2024-09-30 08:08 | Outpatient (AMB) | payer BC, SELFPAY ==
--- OUTSIDE RECORDS SUMMARY | 2024-09-30 08:19 | XMS_ITS | Clinical Summary ---
Author Organization [facility] Address [address] [place] [phone] Phone Care Team Providers Care Gill Tender Name Role Phone Kelvin Quinones MD Primary Care Provider [phone] Allergies Active Allergy Reactions Criticality Noted Date Comments Penicillins 08/01/2021 Medications valACYclovir (VALTREX) 1 g tablet Take 1,000 mg by mouth if needed 05/31/2021 Active tamsulosin (FLOMAX) 0.4 MG 24 hr capsule Take 1 capsule by mouth 1 (one) time each day 07/12/2021 Active FLUoxetine (PROzac) 40 MG capsule Take 1 capsule by mouth 1 (one) time each day 07/21/2021 Active atoMOXetine (STRATTERA) 60 MG capsule Take 1 capsule by mouth 1 (one) time each day 05/27/2021 Active omeprazole (PriLOSEC) [address] capsule Take 20 mg by mouth 1 (one) time each day Do not crush or chew. Active cholecalciferol (VITAMIN D-3 SUPER STRENGTH) 50 MCG (2000 UT) tablet Take 2,000 Units by mouth 1 (one) time each day Active chlorthalidone 25 MG tablet TAKE 1 TABLET BY MOUTH 1 TIME EACH DAY. 90 tablet 1 10/27/2021 Active doxycycline (ADOXA) 100 MG tablet 11/30/2021 Active lisinopril 10 MG tablet Take 1 tablet (10 mg total) by mouth 1 (one) time each day 12/01/2021 Active Active Problems Problem Noted Date Diagnosed Date Essential hypertension 08/01/2021 Renal stone 08/01/2021 Hypertension 08/01/2021 Family History Medical History Relation Comments Hypertension Father Cancer Father's Brother Stroke Maternal Grandmother Cancer Mother's Brother Relation Status Comments Father Alive Father's Brother Maternal Grandmother Mother Alive Mother's Brother Social History Tobacco Use Types Packs/Day Years Used Date Smoking Tobacco: Former Cigarettes Q uit: 06/11/2019 Smokeless Tobacco: Former Alcohol Use Standard Drinks/Week Comments Yes 0 (1 standard drink = 0.6 oz pure alcohol) Alcoholic Drinks/day: Occasional social drink Sex and Gender Information Value Date Recorded Sex Assigned at Not on file Legal Sex Male 5:03 PM EST Gender Identity Not on file Sexual Orientation Not on file Last Filed Vital Signs Vital Sign Reading Time Taken Comments Blood Pressure 138/90 12/01/2021 4:33 PM EDT Pulse 93 12/01/2021 4:33 PM EDT Temperature - - Respiratory Rate - - Oxygen Saturation 97% 12/01/2021 4:33 PM EDT Inhaled Oxygen Concentration - - Weight 95.3 kg (210 lb 3.2 oz) 12/01/2021 4:33 P M EDT Height - - Body Mass Index - - Plan of Treatment Health Maintenance Due Date Last Done Comments Hepatitis B Vaccine (1 of 3 - 19+ 3-dose series) 1997 Influenza Vaccine (Season Ended) 2025 Pneumococcal Vaccine: Peds ( 0 to 5 Years) and At-Risk Patients (6 to 49 Years) Aged Out No longer eligible b ased on patient's age to complete this topic Insurance [facility] Care Teams Gill Tender Relationship Specialty Start Date End Date Kelvin Quinones MD [address] [place] [address] PCP - General Internal Medicine 08/01/21
--- OUTSIDE RECORDS SUMMARY | 2024-09-30 08:19 | XMS_ITS | Encounter Summary ---
Author Organization [facility] Address [address] [place] [address] Care Team Providers Care Ground Hand Name Role Phone Kelvin Quinones MD Primary Care Provider [phone] Encounter Details Date Type Department Care Team (Late st Contact Info) Description 04/15/2021 Scanned Document [address] [place] [id number] Provider, Generic Social History Tobacco Use Types Packs/Day Years Used Date Smoking Tobacco: Never Assessed Sex and Gender Information Value Date Recorded Sex Assigned at Male 04/13/2023 2:38 PM EDT Legal Sex Male 12:19 PM EDT Gender Identity Male 04/13/2023 2:38 PM EDT Sexual Orientation Choose not to disclose 2022 2:38 PM EDT documented as of this encounter Plan of Treatment Not on file documented as of this encounter Visit Diagnoses Not on filedocumented in this encounter Care Teams Ground Hand Relationship Specialty Start Date End Date Kelvin Quinones MD [address] [place] [phone] PCP - General Internal Medicine 02/05/23 documented as of this encounter
--- OUTSIDE RECORDS SUMMARY | 2024-09-30 08:19 | XMS_ITS | Clinical Summary ---
Author Organization [facility] Address [address] [place] [address] Care Team Providers Care Heel Molder Name Role Phone Unavailable Primary Care Provider Unavailabl e Allergies Active Allergy Reactions Criticality Noted Date Comments Penicillins Rash Low 10/04/2020 Immunizations Name Administration Dates Next Due Covid-19 (Pfizer) Dilution Required 10/25/2020,0 10/04/2020 Social History Tobacco Use Types Packs/Day Years Used Date Smoking Tobacco: Never Assessed Sex and Gender Information Value Date Recorded Sex Assigned at Male 10/03/2020 7:21 AM EDT Gender Identity Not on file Sexual Orientation Not on file Job Start Date Occupation Industry Not on file Not on file Not on file Plan of Treatment Health Maintenance Due Date Last Done Comments Hepatitis B Vaccines (1 of 3 - 3-dose series) 1978 Hepatitis C Screening 1978 Depression Screening 1990 Preventative Health Evaluation 1996 DTap / Tdap / Td (1 - Tdap) 1997 Colon Cancer Screening (Colonoscopy) 2023 COVID-19 Vaccine (3 - 2023-2 5 season) 2024 10/25/2020, 10/04/2020 Influenza Vaccine (#1) 2024 Pneumococcal Vaccine Aged Out No long er eligible based on patient's age to complete this topic RSV Ped < 20 months Aged Out No longe r eligible based on patient's age to complete this topic
--- OUTSIDE RECORDS SUMMARY | 2024-09-30 08:19 | XMS_ITS | Encounter Summary ---
Author Organization [facility] Address [address] [place] [address] Phone Care Team Providers Care Gym Supervisor Name Role Phone Kelvin Quinones MD Primary Care Provider + [phone] Encounter Details Date Type Department Care Team (Late st Contact Info) Description 10/20/2021 Documentation Only [facility] [address] [place] [address] David Mantilla MD Social History Tobacco Use Types Packs/Day Years [...] on file Sexual Orientation Not on file COVID-19 Exposure Response Date Recorded In the last month, have you been in contact with someone who was confirmed or suspected to have Coronavirus / COVID-19? No / Unsure 10/19/2021 8:38 AM EDT documented as of this encounter Plan of Treatment Not on file documented as of this encounter Visit Diagnoses Not on filedocumented in this encounter Care Teams Gym Supervisor Relationship Specialty Start Date End Date Kelvin Quinones MD [address] [place] [address] PCP - General Internal Medicine 08/01/21 documented as of this encounter
--- OUTSIDE RECORDS SUMMARY | 2024-09-30 08:19 | XMS_ITS | Clinical Summary ---
Author Organization [facility] Address [address] [place] [address] Care Team Providers Care Supervisor In Charge Name Role Phone Kelvin Quinones MD Primary Care Provider [phone] Allergies Active Allergy Reactions Criticality Noted Date Comments Penicillins Rash/Dermatitis Low 02/05/2023 Medications FLUoxetine (PROzac) 40 MG capsule Take 80 mg by mouth daily. Active ergocalciferol (VITAMIN D2,DRISDOL) [address] units Cap Take 50,000 Units by mouth once a week. Active amLODIPine (NORVASC) 10 MG tablet Take 10 mg by mouth daily. Active lisinopril (PRINIVIL,ZeSTRI L) 20 MG tablet Take 20 mg by mouth daily. Active valACYclovir (VALTREX) 500 MG tablet Take 500 mg by mouth 2 (two) times a day. Active pyridoxine (VITAMIN B-6) 100 MG tablet Take 100 mg by mouth daily. Active tamsulosin (FLOMAX) 0.4 MG capsule Take 0.4 mg by mouth daily. Active Immunizations Immunization Administration Dates Next Due Covid-19 MRNA Vaccine - Pfizer 12+ (Purple Cap) 06/24/2021 Covid-19 mRNA Bivalent Vacci ne - Pfizer 30 mcg/0.3mL 12+ 04/21/2022 Influenza Inactivated/Split Preservative Free IM 04/14/2022 Influenza, Quadrivalent (FLU CELVAX) MDCK, Preservative Free IM 04/13/2023 Influenza, Trivalent (FLUARI X, AFLURIA, FLULAVAL, FLUZONE) Preservative Free IM 04/04/2024 Tdap 02/05/2023 Social History Tobacco Use Types Packs/Day Years Used Date Smoking Tobacco: Never Assessed Sex and Gender Information Value Date Recorded Sex Assigned at Male 04/13/2023 2:38 PM EDT Legal Sex Male 12:19 PM EDT Gender Identity Male 04/13/2023 2:38 PM EDT Sexual Orientation Choose not to disclose 2022 2:38 PM EDT Last Filed Vital Signs Vital Sign Reading Time Taken Comments Blood Pressure 144/94 02/05/2023 8:13 AM EDT Pulse 84 02/05/2023 8:13 AM EDT Temperature 36.4 ??C (97.6 ??F) 02/05/2023 8:13 AM ED T Respiratory Rate 12 10/20/2010 8:54 AM EDT Oxygen Saturation 97% 02/05/2023 8:13 AM EDT Inhaled Oxygen Concentration - - Weight 95.3 kg (210 lb) 02/05/2023 8:13 AM EDT Height - - Body Mass Index - - Plan of Treatment Health Maintenance Due Date Last Done Comments Hepatitis C Virus Screening 1978 HIV Screening 1991 Hepatitis B Vaccines (1 of 3 - 19+ 3-dose series) 1997 Colonoscopy 2023 COVID-19 Vaccine ( season) 2024 04/21/2022, 06/24/2021, 10/25/2020, Additional history exists DTaP/Tdap/Td Vaccines (2 - Td or Tdap) 02/05/2033 02/05/2023 Influenza Vaccine Completed 04/04/2024, , 04/14/2022 Pneumococcal Vaccine: Pediatric (0-5 Years) and At-Risk Patients (6 to 49 Years) Aged Out No longer eligible based on patient's age to complete this topic Insurance [facility] [place] [place] - PPO Care Teams Supervisor In Charge Relationship Specialty Start Date End Date Kelvin Quinones MD [address] [place] [phone] PCP - General Internal Medicine 02/05/23
--- OUTSIDE RECORDS SUMMARY | 2024-09-30 08:20 | XMS_ITS | Clinical Summary ---
Author Organization [facility] Address [address] [place] [address] Phone Care Team Providers Care Special Loan Officer Name Role Phone Kelvin Quinones MD Primary Care Provider [phone] Allergies Active Allergy Reactions Criticality Noted Date Comments Fentanyl Rash 07/06/2024 Penicillins Rash Low 10/04/2020 Medications No known medications Encounters Date Type Department Care Team Description 07/06/2024 1:28 PM EST - 07/06/2024 1:47 PM EST Emergency [facility] Emergency [address] [place] [address] Finger laceration, initial encounter (Primary Dx) Discharge Disposition: Home or Self Care from Last 3 Months Immunizations Name Administration Dates Next Due [facility] SARS-CoV-2 COVID-19, mRNA, LNP-S, preservative free 10/25/2020,10/04/2020 Social History Tobacco Use Types Packs/Day Years Used Date Smoking Tobacco: Unknown Tobacco Cessation:Counseling Given: Not Answered Sex and Gender Information Value Date Recorded Sex Assigned at Male 07/06/2024 1:40 PM EST Legal Sex Male 11:48 AM EST Gender Identity Male 07/06/2024 1:40 PM EST Sexual Orientation Choose not to disclose 2024 1:40 PM EST Obstetrics History Last Filed Vital Signs Vital Sign Reading Time Taken Comments Blood Pressure 138/85 07/06/2024 1:31 PM EST Pulse 96 07/06/2024 1:31 PM EST Temperature 37.1 ??C (98.8 ??F) 07/06/2024 1:31 PM ES T Respiratory Rate 18 07/06/2024 1:31 PM EST Oxygen Saturation 97% 07/06/2024 1:31 PM EST Inhaled Oxygen Concentration - - Weight 88.5 kg (195 lb) 07/06/2024 1:31 PM EST Height 172.7 cm (5' 8 ) 07/06/2024 1:31 PM EST Body Mass Index 29.65 07/06/2024 1:31 PM EST Plan of Treatment Health Maintenance Due Date Last Done Comments Hepatitis B Vaccines (1 of 3 - 19+ 3-dose series) 1997 Cholesterol Screening (Lipid Panel) 05/09/2022 Colorectal Cancer Screening: Colonoscopy 05/09/2022 Depression Screening 05/09/2022 HIV Screening 05/09/2022 Hepatitis C Screening 05/09/2022 Social Influencers of Health Screening 05/09/2022 COVID-19 Vaccine ( season) 2024 04/21/2022, 06/24/2021, 10/25/2020, Additional history exists Hypertension/CHF/CAD Annual BMP Blood Test 07/06/2024 DTaP,Tdap,and Td Vaccines (2 - Td or Tdap) 02/05/2033 02/05/2023 Influenza Vaccine Completed 04/04/2024, 04/13/2023 HIB Vaccines Aged Out No longer eligi ble based on patient's age to complete this topic HPV Vaccines Aged Out No longer eligi ble based on patient's age to complete this topic Hepatitis A Vaccines Aged Out No long er eligible based on patient's age to complete this topic IPV Vaccines Aged Out No longer eligi ble based on patient's age to complete this topic MMR Vaccines Aged Out No longer eligi ble based on patient's age to complete this topic Meningococcal ACWY Vaccine Aged Out N o longer eligible based on patient's age to complete this topic Meningococcal B Vaccine Aged Out No l onger eligible based on patient's age to complete this topic Pneumococcal Vaccine: Pediatrics (0 to 5 Years) and At-Risk Patients (6 to 64 Years) Aged Out No longer eligible based on patient's age to complete this topic RSV Immunization Patients Under 20 months Aged Out No longer eligible based on patient's age to complete this topic Varicella Vaccines Aged Out No longer eligible based on patient's age to complete this topic Insurance [place] Advance Directives Documents on File Type Date Recorded Patient Customer Experience Retail Clerk Expl anation Health Care Decision (hx) 05/18/2011 AD DE ANDA DIRECTIVE Health Care Decision (hx) 05/18/2011 AD DE ANDA DIRECTIVE Health Care Decision (hx) 05/18/2011 AD DE ANDA DIRECTIVE Health Care Decision (hx) 05/18/2011 AD DE ANDA DIRECTIVE Care Teams Special Loan Officer Relationship Specialty Start Date End Date Kelvin Quinones MD [address] [place] [phone] PCP - General Internal Medicine 07/06/24
--- OUTSIDE RECORDS SUMMARY | 2024-09-30 08:20 | XMS_ITS | Data Portability ---
Author Organization [place] [facility], Allergy Address [address] [place] [phone] Assessment Encounter Date Assessment Date Assessment LastModified by Organization Details LastModified Time 11/23/2023 11/23/2023 Patient concerned about difficulty hearing in background situations, possible auditory processing disorder and being evaluated for autism spectrum disorder. Suggest auditory process testing at [facility] or [facility] Arrange for MRI scan given the slight asymmetry in hearing left compared to right. May be due to noise exposure or toxic exposures [email or web address] Not available 11/23/2023 11:02:02 Plan of Treatment Reminders Order Date Submit Date Provider Last Modified By Organization Details Last Modified Time Details Appointments None recorded. Lab None recorded. Referral None recorded. Procedures None recorded. Surgeries None recorded. Imaging MRI, brain + internal auditory canal, w/wo contrast 2023 024 [facility] ([facility]), [address] [place], [address], 13:19:57 Medication Orders None recorded. Patient TargetsNo targets recorded. Patient InstructionsNo instructions recorded. Reason for Referral None Reported. Results Created Date Observation Date Name Description Value Unit Range Abnormal Flag Note LastModifiedBy Organization Detail LastModifiedTime 11/26/19 24 audio gram No observ ation record ed. BARCODE Not Available 2023 08:52:15 11/29/19 24 11/28/2023 MRI, brain + brain stem, w/wo contr ast [facility] Access ion Number : [id number] [address] alberto t Name: Gianni Curtis l Record Number : [id number] Date of : 1980 Date of Exam: 2023 Referr ing Physic gloria: Cameron Squires [facility] [address] [place] [address] Exam: MR Brain (C-/C+ ) CPT 01913 Room Descri ption: [place] Siem Espr 1.5 MR Brain (C-/C+ ) CPT 72005 INDICA TION / CLINIC AL QUESTI ON: Reason For Exam: H90.3 - Sensor ineura l hearin g loss, bilate ral, , UNMAPP ED LAB (MRI, BRAIN + CONTINUOUS DRYOUT OPERATOR AL AUDITO RY CANAL, W/WO CONTRA ST) Reason For Exam: H90.3 - Sensor ineura l hearin g loss, bilate ral, , UNMAPP ED LAB (MRI, BRAIN + CONTINUOUS DRYOUT OPERATOR AL AUDITO RY CANAL, W/WO CONTRA ST) Depart ment Protoc ol TECHNI QUE: MRI of the brain with attent ion to the internal grinder tender al audito ry canals was perfor med with and withou t contra st utiliz ing sagitt al T1, axial T2, axial CISS, axial and campa l T1, and post-c ontras t axial and campa l T1-brock ghted sequen neto. 19 mL Dotare m intrav enous contra st was admini stered . COMPAR BRYCE: None. FINDIN GS: IAC: There is no mass or abnorm al enhanc ement in the internal grinder tender al audito ry canals or cerebe llopon [...] onical ly Signed By: Alison hurley MD [facility] ([facility]) [address], [place], [address], 11/30/2023 10:05:58 Result Notes None recorded. Problems Name Problem SNOMED Code Status Onset Date Resolution Date Notes Provider Name and Address Organization Details Recorded Time Abnormal auditory perception 09971305 Active 2023 Noris perez [place] - [facility] 10:23:38 Sensorineural hearing loss of bilateral ears 466520231 Active 2023 Noris perez [place] - [facility] 10:24:03 Attention deficit hyperactivity disorder 998699282 Active 2023 CAMERON CARSON MD [address] [place] [address], [place], [phone], [facility] - [facility] 10:59:41 Obstructive sleep apnea syndrome 32611715 Active 2023 CAMERON CARSON MD [address] [place] [address], [place], [phone], [facility] - [facility] 10:59:45 Problem Notes None recorded. Procedures Surgical History Date Name Laterality Status Provider Name and Address Organization Details Recorded Time 11/23/19 24 Comp Audio with Tymps (57567 & 96236) completed Noris Bowens [place] - [facility] 11/23/2023 10:23:25 lithotripsy completed Anyi Rodriguez [place] - [facility] 11/23/2023 10:35:53 tonsillectomy completed Anyi Rodriguez MA [facility] 11/23/2023 10:36:01 procedure on wrist completed Anyi Rodriguez [facility] 11/23/2023 10:36:17 Imaging Results Imaging Date Name Status LastModified by Organiz ation Details LastModified Time 11/26/2023 audiogram completed [facility] Information no t available 11/26/2023 08:52:15 11/28/2023 MRI, brain + brain stem, w/wo contrast completed [facility] ([facility]) [address] [place], [address], 11/30/2023 10:05:58 Procedure Notes None recorded. Medical [...] Updated DateTime 11/23/2023 173.99 cm 30.6 kg/m2 79584.84 g Anyi Rodriguez [place] - [facility] 11/23/2023 10:39:45 Social History None recorded. Functional Status None recorded. Mental Status None recorded. Family History Nothing Reported. Medical History Condition Response Anxiety Y Hypertension Y Sleep Disorder Y GERD/Reflux Y Past Encounters Encounter ID Performer Location Encounter Start Date Encounter Closed Date Diagnosis/Indication Diagnosis SNOMED-CT Code Diagnosis ICD10 Code Diagnosis Note [id number] CAMERON MATAMOROS MD [facility] [address] [address] 11/23/2023 09:31:02 11/23/2023 11:06:17 Sensorineural hearing loss of bilateral ears 412573083 H90.3 Audiologic al evaluation results: Right ear: {{Normal* Mild Moder ate Modera tely-sever e Severe P rofound}} {{hearing sloping to a mild* slop ing to a moderate s loping to moderately severe slo ping to severe slo ping to profound f lat high frequency low frequency mid frequency cookie bite hutson curve}} {{with sen sorineural hearing loss with* cond uctive hearing loss with mixed hearing loss with}} {{excellen t* good fa ir poor no t measurable }} word recognitio n. Left ear: {{Normal* Mild Moder ate Modera tely-sever e Severe P rofound}} {{hearing sloping to a mild slopi ng to a moderate* sloping to moderately severe slo ping to severe slo ping to profound f lat high frequency low frequency mid frequency cookie bite hutson curve}} {{with sen sorineural hearing loss with* cond uctive hearing loss with mixed hearing loss with}} {{excellen t* good fa ir poor no t measurable }} word recognitio n. Tympanomet ry: Right Ear:{{Type A* Type As Type Ad Type C Type C, shallow & rounded Ty pe B Type B with large volume Cou ld not maintain a hermetic seal}} Left Ear:{{Type A* Type As Type Ad Type C Type C, shallow & rounded Ty pe B Type B with large volume Cou ld not maintain a hermetic seal}} Attention deficit hyperactivity disorder 731571967 F90.9 Obstructiv e sleep apnea syndrome 76270658 G47.33 Health Concerns Section Related Observation LastModified by Organization Detai ls LastModified Time None Recorded Concern Status LastModified by Organization Details LastModified Time None Recorded Advance Directives Directive None Recorded Payers Encounter Date Sequence Insurance Name Policy Number Policy Walsh Covered Member ID Walsh Member ID Guarantor Name 11/23/2023 1 [employer] [employer] ([place]) [id number] Gianni Curtis [id number] Gianni Curtis Notes Date Note Type Note Provider Name and Address Organization Details Recorded Time 11/23/2023 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 Rare tinnitus. Daughter has auditory processing disorder CAMERON NAM MD [address] [place] [address], [phone], [facility] - [facility] 11/23/2023 11:02:23
--- NOTE | 2024-09-30 08:22 | A.OFFVIS_ITS ---
Vital Signs 09/30/24 08:23 Height 5 ft 7.5 in Weight 190 lb BMI 29.3 Intake Visit Reasons: 6m/Testo Intake Note: Gianni 44 yr old male presents today for his 6 month check up s/p testosterone. Allergies fentanyl [FENTANYL] Allergy (Unknown, Verified 09/30/24 08:23) RASH penicillin V Allergy (Unknown, Verified 09/30/24 08:23) Unknown Penicillins [PCN] Allergy (Unknown, Verified 09/30/24 08:23) UNKNOWN HPI Comments Details: Gianni Curtis is a very pleasant male. He is a patient of Dr Quinones. He is seen for the following urologic conditions. - hypogonadism - nephrolithiasis - erectile dysfunction - lower urinary tract symptoms Six-month follow-up Lab work reviewed Calcium high-borderline, testosterone 183, SHBG 18.0 No symptoms of low testosterone Adequate energy level, effective erections Discussed role of hormone level versus clinical manifestations Appears that daily tadalafil has helped with erectile quality and subsequent well being Discussed sleep apnea management Using tamsulosin p.r.n. for bladder emptying - did discuss transurethral incision of the prostate which he is considering Six-month follow-up Lower urinary tract symptoms Trapped prostate Good effect from alpha-gabriel Helps minimize prostatitis Previously have discussed transurethral incision of the prostate Hypogonadism:? - not currently in therapy Responded to restart in 2019 ? He presents today for?further evaluation and followup of his hypogonadism.? Initial symptoms include? erectile dysfunction ?Yes ? decreased libido ?No ? change in mood/depression ?No ? in muscle size/strength ?Yes ? increased fatigue/malaise ?Yes ? increased abdominal fat ?No ? tender breasts/gynecomastia ?No ? hair loss ?No ? osteopenia ?No ? The onset of symptoms has been?gradual.? Associate conditions include? chronic pain with opioid use ?No ? obstructive sleep apnea ?No ? CAD ?No ? diabetes ?No ? dyslipidemia ?No ? hypertension ?No ? obesity ?No ? stress - financial, family, employment ?No ? heavy alcohol or illicit drug use ?No ? He has been taking?antidepressants.? Laboratory results?baseline, October 2015 testosterone, low, albumin, normal, SHBG, normal, calculated bioavailable testosterone < 150, estradiol, , low ?- October 2016 T 278 ?- 05/27 T 340 ?06/29 301 ?09/27 T 134 PSA 0.2.? Current therapy includes?none.? 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 Therapeutic plan?periodic review.? Nephrolithiasis/Urolithiasis:? No stones on recent x-ray. ? They are here for?further evaluation of urethrolitiasis.? They present for evaluation of? back pain ?none ? flank pain ?none ? abdominal pain ?none ? Urolithiasis was diagnosed?a number of years ago.? The patient previously had kidney stones whose composition w?calcium stones.? Laboratory investigations include?no recent labs.? 24 Hour urine evaluation?none on file.? Prior treatment(s) include?right, ESWL x4.? Prior imaging includes?October 2016 - , a renal ultrasound, showing no evidence of stones ?06/29 , a renal ultrasound right 4mm ?12/27 , a renal ultrasound, showing no evidence of stones ?05/29 , a renal ultrasound bilateral 3mm stones ?11/28 KUB NAD - 12/29 renal ultrasound bilateral 3 mm stones left renal cysts largest is 1.3 cm - 03/02 renal ultrasound bilateral stones, 4-5 mm right, collection on left - 08/31 renal ultrasound small bilateral punctate stones, somewhat reduced from last imaging - 03/04 renal ultrasound right 3mm small stone ? UA today shows?5.5-6.0, , high specific gravity suggestive of relative dehydration. ? Current therapeutic plan will be?continue surveillance with [address] Medical History GERD (gastroesophageal reflux disease) Anxiety HTN (hypertension) Attention deficit disorder History of kidney stones Recurrent nephrolithiasis Erectile dysfunction due to diseases classified elsewhere Hypogonadism in male Surgical History History of surgery Social History Patient Tobacco Use Status: Former Tobacco user Review of Systems Const Denies chills and Denies fever(s) Card Reports no additional complaints and Denies syncope Resp Denies cough GI Denies abdominal pain and Denies heartburn Reports as per HPI and Denies change in libido Neuro Denies syncope Psych Denies change in libido Endo Denies change in libido Physical Exam Vital Signs: BMI result Body Mass Index 29.3 Const General: cooperative, healthy appearing, comfortable and no acute distress Orientation/consciousness: patient oriented x3 HEENT Face and sinus: Yes normal facial exam Mouth: moist mucous membranes Neck Neck: Yes normal visual inspection, Yes full ROM and Yes trachea midline Chest Chest palpation & inspection: normal inspection of the chest Resp Effort & Inspection: normal respiratory effort, able to speak in complete sentences and no respiratory distress GI Inspection: Yes normal to inspection Back/Spine/Pelvis Cervical Spine: normal cervical lordosis Thoracic/Lumbar Spine: thoracic and lumbar spine normal to inspection Skin General skin exam: no rashes or lesions noted Neuro General: patient oriented x3, gait normal, tone normal and moves all extremities Extrem General: Yes normal to inspection and Yes capillary refill normal Assessment & Plan Assessment & Plan (1) Erectile dysfunction: Code(s): N52.9 - Male erectile dysfunction, unspecified Category: Medical (2) Hypogonadism in male: Code(s): E29.1 - Testicular hypofunction Category: Medical Plan Six-month follow-up repeat lab work Orders: Orders Sex Hormone Binding Globulin 6 Months E29.1 - Testicular hypofunction IRON PROFILE 6 Months E29.1 - Testicular hypofunction Lutenizing Hormone 6 Months E29.1 - Testicular hypofunction Follicle Stimulating Hormone 6 Months E29.1 - Testicular hypofunction Testosterone, Free/Total 6 Months E29.1 - Testicular hypofunction Patient Instructions: This note is constructed using voice recognition software. While every effort has been made to ensure accuracy load planner errors may have been included. Imaging studies, laboratory and physical exam results were discussed and reviewed in detail. No major barriers to patient understanding were identified. An opportunity to ask questions regarding the treatment plan was provided. All questions were answered. The patient expressed understanding and agreement with the above treatment plan. The patient is aware they should contact our office by phone for worsening of their current condition or the appearance of new urologic symptoms. Compliance is encouraged with any medications and followup testing that is ordered. It is a privilege to participate in the urologic care of your patient. If you have any questions or concerns regarding treatment for the above conditions, or other urologic issues, please do not hesitate to contact me. The office telephone contact is [phone]. Sincerely, Dr Tomás Lanier MD, [facility] - Urology Compassionate Specialist Care for the Genitourinary System Coding Level of Care Code Est Pt Level 3 (22648) Complex EM visit Add On G2211 Diagnoses Erectile dysfunction N52.9 Hypogonadism in male E29.1
[2024-09-30 08:23] VITALS: BMI 29.3
== END 2024-09-30 09:13 | disposition home or self-care (01) ==
LOC: HO.HUSH 08:09
PROVIDERS: PCP Internal Medicine; Visit Provider Urology
DX: N52.9 Male erectile dysfunction, unspecified (principal); E29.1 Testicular hypofunction
CPT/HCPCS: 99213

== ENCOUNTER 2025-04-01 08:42 | Outpatient (AMB) | payer BC, SELFPAY ==
--- NOTE | 2025-04-01 08:42 | MHC.OFFVIS ---
Intake Visit Reasons: 6m/labs Intake Note: Patient is Present for: 6mo follow up Urology Medication: Vitamin B6, Sildenafil, Tadalafil, Tamsulosin Blood Thinners: None labs done 03/20/25: ft&TT 239, LH 3.7, FSH 7.8 Public Relations Assistant Required: No Accompanied by: Self / Same As Patient Allergies fentanyl (FENTANYL) Allergy (Unknown, Verified 04/01/25 08:44) RASH penicillin V Allergy (Unknown, Verified 04/01/25 08:44) Unknown Penicillins (PCN) Allergy (Unknown, Verified 04/01/25 08:44) UNKNOWN HPI Comments Details: Gianni Curtis is a very pleasant male. He is a patient of Dr Quinones. He is seen for the following urologic conditions. - hypogonadism - nephrolithiasis - erectile dysfunction - lower urinary tract symptoms Telemedicine Evaluation 15 min Consultation Famely Axel Video Six-month follow-up Lab work reviewed Testosterone 239, LH 3.7 No symptoms of low testosterone Adequate energy level, effective erections Have discussed use of enclomiphene Appears that daily tadalafil has helped with erectile quality and subsequent well being Discussed sleep apnea management Using tamsulosin p.r.n. for bladder emptying - did discuss transurethral incision of the prostate which he is considering Six-month follow-up Lower urinary tract symptoms Trapped prostate Good effect from alpha-gabriel Helps minimize prostatitis Previously have discussed transurethral incision of the prostate Hypogonadism:? - not currently in therapy Responded to restart in 2019 ? He presents today for?further evaluation and followup of his hypogonadism.? Initial symptoms include? erectile dysfunction ?Yes ? decreased libido ?No ? change in mood/depression ?No ? in muscle size/strength ?Yes ? increased fatigue/malaise ?Yes ? The onset of symptoms has been?gradual.? Associate conditions include? chronic pain with opioid use ?No ? obstructive sleep apnea ?No ? CAD ?No ? diabetes ?No ? dyslipidemia ?No ? hypertension ?No ? obesity ?No ? stress - financial, family, employment ?No ? heavy alcohol or illicit drug use ?No ? He has been taking?antidepressants.? Laboratory results?baseline, October 2015 testosterone, low, albumin, normal, SHBG, normal, calculated bioavailable testosterone < 150, estradiol, , low ?- October 2016 T 278 ?- 05/27 T 340 ?06/29 301 ?09/27 T 134 PSA 0.2.? Current therapy includes?none.? 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 Therapeutic plan?periodic review.? Nephrolithiasis/Urolithiasis:? No stones on recent x-ray. ? They are here for?further evaluation of urethrolitiasis.? They present for evaluation of? back pain ?none ? flank pain ?none ? abdominal pain ?none ? Urolithiasis was diagnosed?a number of years ago.? The patient previously had kidney stones whose composition w?calcium stones.? Laboratory investigations include?no recent labs.? 24 Hour urine evaluation?none on file.? Prior treatment(s) include?right, ESWL x4.? Prior imaging includes?October 2016 - , a renal ultrasound, showing no evidence of stones ?06/29 , a renal ultrasound right 4mm ?12/27 , a renal ultrasound, showing no evidence of stones ?05/29 , a renal ultrasound bilateral 3mm stones ?11/28 KUB NAD - 12/29 renal ultrasound bilateral 3 mm stones left renal cysts largest is 1.3 cm - 03/02 renal ultrasound bilateral stones, 4-5 mm right, collection on left - 08/31 renal ultrasound small bilateral punctate stones, somewhat reduced from last imaging - 03/04 renal ultrasound right 3mm small stone ? UA today shows?5.5-6.0, , high specific gravity suggestive of relative dehydration. ? Current therapeutic plan will be?continue surveillance with B6 PFSH Medical History GERD (gastroesophageal reflux disease) Anxiety HTN (hypertension) Attention deficit disorder History of kidney stones Recurrent nephrolithiasis Erectile dysfunction due to diseases classified elsewhere Hypogonadism in male Surgical History History of surgery Social History Patient Tobacco Use Status: Former Tobacco user Telehealth Telehealth Telehealth Platform: F[employer]ely Location of provider rendering services: practice address Location of patient: address on file Patient Identification confirmed using: Name, : Yes Telehealth method: video Patient verbally consented to treatment: Yes Patient verbally consented to billing insurance company: Yes Patient informed of any privacy concerns related to visit: Yes Assessment & Plan Assessment & Plan (1) Nephrolithiasis: Code(s): N20.0 - Calculus of kidney Category: Medical (2) Bladder outlet obstruction: Code(s): N32.0 - Bladder-neck obstruction Category: Medical (3) Erectile dysfunction: Code(s): N52.9 - Male erectile dysfunction, unspecified Category: Medical Plan Six-month follow-up labs Renal ultrasound Orders: Orders US renal BI 6 Months N20.0 - Calculus of kidney Medications: Changed From pyridoxine (vitamin B6) 100 mg PO DAILY 90 days 90 tabs 1RF N20.0 - Calculus of kidney To pyridoxine (vitamin B6) 50 mg PO DAILY 90 tabs 1RF 90 days N20.0 - Calculus of kidney Refilled tadalafil 5 mg PO DAILY 90 tabs 1RF sexual activity 90 days N52.9 - Male erectile dysfunction, unspecified tamsulosin 0.4 mg PO DAILY 90 caps 1RF 90 days N32.0 - Bladder-neck obstruction Patient Instructions: This note is constructed using voice recognition software. While every effort has been made to ensure accuracy shot hole driller errors may have been included. Imaging studies, laboratory and physical exam results were discussed and reviewed in detail. No major barriers to patient understanding were identified. An opportunity to ask questions regarding the treatment plan was provided. All questions were answered. The patient expressed understanding and agreement with the above treatment plan. The patient is aware they should contact our office by phone for worsening of their current condition or the appearance of new urologic symptoms. Compliance is encouraged with any medications and followup testing that is ordered. It is a privilege to participate in the urologic care of your patient. If you have any questions or concerns regarding treatment for the above conditions, or other urologic issues, please do not hesitate to contact me. The office telephone contact is [phone]. Sincerely, Dr Tomás Lanier MD, [facility] - Urology Compassionate Specialist Care for the Genitourinary System Coding Level of Care Code Tele Est Pt Level 3 (75761) Complex EM visit Add On G2211 Diagnoses Nephrolithiasis N20.0 Bladder outlet obstruction N32.0 Erectile dysfunction N52.9
--- OUTSIDE RECORDS SUMMARY | 2025-04-01 09:11 | XMS_ITS | Clinical Summary ---
Author Organization [facility] Address [address] [place] [address] Care Team Providers Care Equipment Validation Specialist Name Role Phone Unavailable Primary Care Provider [...] Screening (Colonoscopy) 2023 COVID-19 Vaccine (3 - 2024-2 6 season) 2025 10/25/2020, 10/04/2020 Influenza Vaccine (#1) 2025 Pneumococcal Vaccine Aged Out No long er eligible based on patient's age to complete this topic RSV Ped < 20 months Aged Out No longe r eligible based on patient's age to complete this topic
--- OUTSIDE RECORDS SUMMARY | 2025-04-01 09:11 | XMS_ITS | Clinical Summary ---
Author Organization [facility] Address [address] [address] Phone Care Team Providers Care Pipe Smoker Machine Operator Name Role Phone Unavailable Primary Care Provider Unavailabl e Medications amLODIPine (NORVASC) 10 MG tablet Take 10 mg by mouth daily. Active atomoxetine (STRATTERA) 60 mg capsule Take 1 capsule every day by oral route. Active cholecalciferol (VITAMIN D3) 2,000 unit tablet Take 2,000 Units by mouth. Active FLUoxetine (PROZAC) 40 MG capsule Take 1 capsule every day by oral route. Active lisinopril (PRINIVIL,ZESTR IL) 20 MG tablet take 1 tablet by mouth every day for 30 days Active tadalafiL (CIALIS) 5 MG tablet TAKE ONE TABLET BY MOUTH EVERY DAY FOR SEXUAL ACTIVITY 10/01/2024 Active tamsulosin (FLOMAX) 0.4 mg Cap Take 1 capsule every day by oral route. Active valACYclovir (VALTREX) 500 MG tablet Take 500 mg by mouth 2 (two) times a day. Active pyridoxine, vitamin B6, (B-6) 100 MG tablet Take 100 mg by mouth daily. Active Active Problems Problem Noted Date Diagnosed Date Autism spectrum disorder 12/18/2024 Anxiety state 12/18/2024 Abnormal auditory perception 11/23/2023 Attention deficit hyperactivity disorder 024 Obstructive sleep apnea syndrome 11/23/2023 Sensorineural hearing loss (SNHL) of both ears 0 11/23/2023 Essential hypertension 08/01/2021 Renal stone 08/01/2021 Social History Tobacco Use Types Packs/Day Years Used Date Smoking Tobacco: Never Assessed Education Answer Date Recorded Are you interested in more education? Not on stormy e 12/17/2024 Are you concerned about learning? Not on file 12/17/2024 No 12/17/2024 No 12/17/2024 Digital Access Answer Date Recorded No 12/17/2024 No 12/17/2024 Reliable internet access at home? Not on file 12/17/2024 Device with a working camera? Not on file Sex and Gender Information Value Date Recorded Sex Assigned at Not on file Legal Sex Male 7:07 PM EST Gender Identity Not on file Sexual Orientation Not on file Plan of Treatment Upcoming Encounters Date Type Department Care Team (Late st Contact Info) Description 05/28/2025 12:00 PM EST Telemedicine [facility] [address] [place] [address] Xavi Conley MD, [place] [address] [facility] [address] [place] [address] [email or web address] Health Maintenance Due Date Last Done Comments BLOOD PRESSURE 1978 CREATININE LEVEL 1978 LIPID PANEL 1978 POTASSIUM LEVEL 1978 DEPRESSION SCREENING 1990 SMOKING Hx and SMOKELESS TOB ACCO SCREENING 1991 HEPATITIS C SCREENING 1996 HIV ONE-TIME SCREENING (18-6 5 YEARS) 1996 COLOGUARD 2023 COLONOSCOPY 2023 COLORECTAL CANCER SCREENING 2023 FIT TEST 2023 FOBT 2023 SIGMOIDOSCOPY 2023 VIRTUAL COLONOSCOPY 2023 INFLUENZA VACCINE (#1) 2025 COVID-19 VACCINE (2024-2 6 season) 2025 Adult Td,Tdap Booster 02/05/2033 02/05/2023 HEPATITIS A VACCINES Aged Out No long er eligible based on patient's age to complete this topic HIB VACCINES Aged Out No longer eligi ble based on patient's age to complete this topic MENINGOCOCCAL VACCINES (ACWY) Aged Out No longer eligible based on patient's age to complete this topic MENINGOCOCCAL VACCINES (B) Aged Out N o longer eligible based on patient's age to complete this topic PNEUMOCOCCAL VACCINES (0-49 years) Aged Out No longer eligible based on patient's age to complete this topic Medical Devices Not on file Insurance [facility] OUT OF STATE PPO Additional Source Comments The information contained in this document represents components of the legal health record. It is not the complete legal health record.[facility]
== END 2025-04-01 09:45 | disposition home or self-care (01) ==
LOC: HO.HUSH 08:42
PROVIDERS: PCP Internal Medicine; Visit Provider Urology
DX: N20.0 Calculus of kidney (principal); N32.0 Bladder-neck obstruction; N52.9 Male erectile dysfunction, unspecified
CPT/HCPCS: 99213